=== PATIENT | female | born 1990 | race Two or more races ===

== ENCOUNTER 2025-02-26 10:37 | Emergency (ER) | payer MEDICAID, SELFPAY ==
[2025-02-26 11:01] VITALS: BP 128/85; PULSE 80; RESP 18; TEMP 37.2; O2SAT 100; BMI 28.5
--- NOTE | 2025-02-26 11:06 | EKG_ITS ---
[facility] Test Date: 2025-02-26 Pat Name: ANA LILIA NAIR Department: Room: - Gender: Female Prefitter: : 1990 Requested By: Amado Segal Order Number: [id number] Reading MD: Amado Segal Measurements Intervals [place] Rate: 75 P: 8 DC: 143 QRS: 55 QRSD: 81 T: 29 QT: 347 QTc: 388 Interpretive Statements SINUS RHYTHM NONSPECIFIC T-WAVE ABNORMALITY No previous ECG available for comparison /[email or web address]/[id number].pdf
--- NOTE | 2025-02-26 11:06 | XR_ITS ---
Examination: PA chest single view TECHNIQUE: Upright PA chest single view Date and time: February 26, 2025 1114 hours INDICATIONS: Syncopal episode beginning 3 days ago. FINDINGS: Normal heart size. No aspiration pneumonia. The osseous structures are intact. IMPRESSION: No active disease.
--- NOTE | 2025-02-26 11:07 | PD.EDABDPN ---
ED Abdominal Pain RME/HPI General Chief Complaint: Abdominal Pain Stated complaint: LOWER ABD PAIN, N/V, DIARRHEA, SYCOPAL EPISODE Time seen by provider: 02/26/25 10:59 Arrival date/time: 02/26/25 10:37 Source: patient Limitations: no limitations RME / HPI RME / HPI narrative: 34 year old female here today with a 2 week history of intermittent abdominal cramping followed by syncopal episodes. Last episode was 3 days ago. She had no injuries to her falls. She denies any chest pain or shortness of breath. Has no lower leg edema. No fevers or chills. No vomiting although she endorses loose stools without blood. She has no urinary complaints. She denies having a primary doctor. She reports prior history of cholecystectomy and appendectomy. Denies any chronic diagnosis including diabetes, hypertension, or thyroid disorder. Denies any history of anxiety or depression. Denies alcohol abuse, smoking, or drug use. Related Data Previous Rx's ?Medication ?Instructions ?Recorded docusate sodium 100 mg capsule 100 mg PO BID #40 caps 10/21/20 (Colace) hydrocodone 5 mg-acetaminophen 325 1 tab PO Q6H PRN pain (scale score 10/21/20 mg tablet 7-10) #20 tabs ibuprofen 600 mg tablet 600 mg PO Q8H PRN pain (scale 10/21/20 score 4-6) #15 tabs Allergies Allergy/AdvReac Type Severity Reaction Status Date / Time No Known Allergies Allergy Verified 10/21/20 06:55 Review of Systems Review of Systems Systems Reviewed: All systems reviewed, normal except as documented ED Exam General Limitations: Present no limitations General appearance: Present alert and anxious Head Head exam: Present atraumatic Eye Eye exam: Present normal appearance, PERRL and EOMI ENT ENT exam: Present normal exam, normal oropharynx and mucous membranes moist Neck Neck exam: Present normal inspection, full ROM and trachea midline Chest Chest inspection: Present normal inspection and symmetric chest wall rise Respiratory Respiratory exam: Present normal lung sounds bilaterally Cardiovascular Cardiovascular exam: Present regular rate, normal rhythm and normal heart sounds Abdominal Exam Abdominal exam: Present soft; Absent distention, tenderness, guarding or rebound Extremities Exam Extremities exam: Present normal inspection and full ROM Back Exam Back exam: Present normal inspection and full ROM Neurological Exam Neurological exam: Present alert and oriented X3 Psychiatric Psychiatric exam: Present anxious Skin Skin exam: Present warm, dry, intact and normal color Course Quality Measures none Orders Category Date Time Status EKG (ED ONLY) *Do not use* NOW Care 02/26/25 11:06 Completed EKG (ED Only) Stat Exams 02/26/25 11:06 Draft XR chest 1V Stat Exams 02/26/25 11:06 Completed Alcohol, Blood Medical Stat Lab 02/26/25 12:21 Completed CBC Stat Lab 02/26/25 12:21 Completed CMP [Comprehensive Metabolic Panel] Stat Lab 02/26/25 12:21 Completed Drug Screen,Urine Stat Lab 02/26/25 11:30 Completed HCG,Qualitative Serum Stat Lab 02/26/25 12:21 Completed Lipase Stat Lab 02/26/25 12:21 Completed UA, C/S IF [Urinalysis, C/S if Indicated] Stat Lab 02/26/25 11:30 Completed Vital Signs Vital signs: Vital Signs Temperature 98.9 F 02/26/25 11:01 Pulse Rate 80 02/26/25 11:01 Respiratory Rate 18 02/26/25 11:01 Blood Pressure 128/85 H 02/26/25 11:01 Pulse Oximetry (%) 100 02/26/25 11:01 Oxygen Delivery Method Room Air 02/26/25 11:01 Abdominal Pain MDM MDM Narrative MDM Narrative:: 34 year old female here today with a 2 week history of intermittent abdominal cramping followed by syncopal episodes. Last episode was 3 days ago. She had no injuries to her falls. She denies any chest pain or shortness of breath. Has no lower leg edema. No fevers or chills. No vomiting although she endorses loose stools without blood. She has no urinary complaints. She denies having a primary doctor. She reports prior history of cholecystectomy and appendectomy. Denies any chronic diagnosis including diabetes, hypertension, or thyroid disorder. Denies any history of anxiety or depression. Denies alcohol abuse, smoking, or drug use. On exam patient is nontoxic-appearing. She is anxious appearing. Speech is rapid and pressured. Vital signs are stable. Abdomen is soft and supple with no guarding or masses. Work appears essentially unremarkable. We discussed the need to follow-up as an outpatient with both her primary doctor and cardiology. She is invited return here as needed for any worsening or emergent changes. Patient data External records reviewed:: None Clinical information provided by:: patient Social determinants that could affect healthcare access:: none Patient has the following chronic illnesses:: n/a How is presenting disease/condition affected by chronic disease/condition?: no chronic disease Evaluation data The following diagnostics were reviewed and interpreted by me:: lab results (Workup was unremarkable) and EKG tracing(s) (Normal sinus rhythm at 75 beats minute with nonspecific ST changes.) Lab and/or radiology exams considered but not ordered:: n/a Interpretation Summary: Unremarkable workup Medications / Prescriptions Medications or Prescriptions considered but not ordered:: n/a Medication administrations:: n/a Consultations Consultation(s) initiated? (list below): No Diagnosis Differential diagnosis abdominal pain: abdominal pain, gastroenteritis and pancreatitis Most likely diagnosis given after review of the tests above:: Abdominal cramping, vasovagal reaction Admission Indicated Admission indicated?: not indicated Admission Request Was there a request for admission?: No Disposition Plan Disposition Plan: Discharge Discharge Attestation Discharge Attestation: The patient and all family members were given an opportunity to ask questions and understood the discharge instructions. Discharge instructions specifically effects, indications for sooner follow up or return to the emergency department, and the expected course of current diagnosis. Patient condition: Stable Discharge Plan Plan Patient Disposition: HOME (Self Care) Patient condition on transfer: Stable Prescriptions/Referrals Prescriptions/Med Rec: No Action hydrocodone-acetaminophen 5-325 mg tablet 1 tab PO Q6H MDD 4 PRN (Reason: pain (scale score 7-10)) Qty: 20 0RF docusate sodium [Colace] 100 mg capsule 100 mg PO BID Qty: 40 0RF ibuprofen 600 mg tablet 600 mg PO Q8H PRN (Reason: pain (scale score 4-6)) Qty: 15 0RF Referrals: Jose Ding MD [Physician] - In 1 week Cailin García NP [Primary Care Provider] - In 1 week Problem List Clinical Impression: Abdominal pain, Vaso-vagal reaction Patient/Caregiver Discharge Instructions Education Materials: Abdominal Pain, Causes of Syncope Additional Instructions: - Follow-up with your primary doctor within the next 1 to 2 weeks. - Please contact cardiology to schedule close follow-up appointment. - Return to the emergency room at anytime for any worsening or emergent changes. Print Language: Algerian Stand Alone Forms: Leatha Award Info., Patient Portal Info Letter
[2025-02-26 11:37] LABS: Collection Type, Urine Voided
[2025-02-26 12:04] LABS: Bilirubin,Urine Negative (Negative); Blood,Urine 3+ (Negative); Clarity,Urine Clear (Clear/Hazy); Color,Urine Colorless (Lt Yel-Yel); Culture Indicated,Urine Not Indicated; Glucose, Urine Negative (Negative); Ketones,Urine Negative (Negative); Leukocyte Esterase,Urine Negative (Negative); Nitrite,Urine Negative (Negative); PH,Urine 6.5 (5.0-7.0); Protein,Urine Negative (Neg - Trace); RBC,Urine 33 /hpf (0-3); Specific Gravity,Urine 1.010 (1.001-1.035); Squamous Epithelial Cell,Urine 1 /hpf (0-5); Urobilinogen,Urine Negative mg/dL (0.0-1.0); WBC,Urine < 1 /hpf (0-5)
[2025-02-26 12:22] LABS: Amphetamine/Methamp Scrn,U Negative (Negative); Barbiturate Screen,Urine Negative (Negative); Benzodiazepines Screen,Urine Negative (Negative); Benzoylecgonine Screen, Ur Negative (Negative); Fentanyl Screen,Urine Negative (Negative); Opiate Screen,Urine Negative (Negative); THC Screen,Urine Negative (Negative)
[2025-02-26 12:39] LABS: Basophils # (Auto) 0.1 Thou/mm3 (0.0-0.2); Basophils % (Auto) 1 % (0-2.5); Eosinophils # (Auto) 0.1 Thou/mm3 (0.0-0.5); Eosinophils % (Auto) 2 % (0-10); Hematocrit 37.0 % (36.0-46.0); Hemoglobin 12.7 g/dL (12.0-16.0); Immature Granulocytes Auto 0.02 Thou/mm3 (0.00-0.00); Lymphocytes # (Auto) 1.7 Thou/mm3 (1.0-4.8); Lymphocytes % (Auto) 22 % (10-50); Mean Corpuscular HGB Conc 34.3 g/dl (31.0-37.0); Mean Corpuscular Hemoglobin 31.9 pg (25.0-35.0); Mean Corpuscular Volume 93 fL (80-100); Monocytes # (Auto) 0.5 Thou/mm3 (0.0-0.8); Monocytes % (Auto) 7 % (0-12); Neutrophils # (Auto) 5.3 Thou/mm3 (1.8-7.7); Neutrophils % (Auto) 68 % (37-80); Nucleated Red Blood Cell # 0.00 Thou/mm3 (0.00-0.00); Nucleated Red Blood Cell % 0 /100 WBC (0); Platelet Count 215 Thou/mm3 (140-440); RDW Standard Deviation 39.7 fL (36.4-46.3); Red Blood Count 3.98 Miln/mm3 (4.00-5.20); White Blood Count 7.7 Thou/mm3 (3.6-11.0)
[2025-02-26 12:57] LABS: Alanine Aminotransferase 14 U/L (10-49); Albumin, Serum 4.6 gm/dL (3.5-5.0); Albumin/Globulin Ratio 1.4 (1.2-2.2); Alcohol, Blood Medical < 10.0 mg/dL (0-10.0); Alkaline Phosphatase 64 U/L (46-116); Anion Gap 7 (7-16); Aspartate Amino Transferase 17 U/L (0-34); BUN/Creatinine Ratio 9 Ratio (12-20); Bilirubin,Total 0.4 mg/dL (0.3-1.2); Blood Urea Nitrogen 6 mg/dL (9-23); Calcium 9.4 mg/dL (8.3-10.6); Calcium (Corrected) 9.4 mg/dL (8.5-10.1); Carbon Dioxide 27.6 mMol/L (20.0-31.0); Chloride 106 mMol/L (98-107); Creatinine (Component) 0.7 mg/dL (0.6-1.3); Estimated Creatinine Clearance 104.3 mL/min (>60); Globulin 3.2 gm/dL (2.3-3.5); Glucose 89 mg/dL (74-106); Lipase 44 U/L (12-53); Osmolality,Calculated 277 (275-295); Potassium 3.8 mMol/L (3.4-5.1); Sodium 141 mMol/L (136-145); Total Protein 7.8 gm/dL (5.7-8.2); eGFR > 60 See Note
[2025-02-26 13:10] LABS: HCG,Qualitative Serum Negative
== END 2025-02-26 15:53 | disposition home or self-care (01) ==
PROVIDERS: Physician Assistant Medical; Emergency Provider Nurse Practitioner Primary Care; PCP Nurse Practitioner Women's Health
DX: R10.30 Lower abdominal pain, unspecified (principal); R55 Syncope and collapse; R94.31 Abnormal electrocardiogram [ECG] [EKG]
CPT/HCPCS: 36415; 71045; 80053; 80307; 80320; 81001; 83690; 84703; 85025; 93005; 99283; G0480